=== PATIENT | male | born 2000 | race African-American/Black ===

== ENCOUNTER 2020-05-08 19:25 | Emergency (ER) | payer SELFPAY ==
[2020-05-08] MEDS ORDERED: MAGNES/ALUMIN/SIMET 30ML UCUP ONE (20:17)
--- NOTE | 2020-05-08 20:36 | EDPHYS ---
Physician Documentation [facility] Name: Emerson Pabon Jr Age: 19 yrs Sex: Male : 2000 Arrival Date: 05/08/2020 Time: 19:29 Bed 6 Private MD: ED Physician Eamon Hammer HPI: 05/08 20:40 This 19 yrs old Black Male presents to ER via Ambulatory with complaints of Sore Throat.kb 20:40 The patient presents with sore throat. The patient describes throat pain as constant. kb Onset: The symptoms/episode began/occurred 2 day(s) ago. Severity of symptoms: At their worst the symptoms were moderate, in the emergency department the symptoms are unchanged. Modifying factors: The symptoms are alleviated by nothing, the symptoms are aggravated by swallowing, Patient's oral intake status: good Denies contact with similarly ill indivduals. Associated signs and symptoms: Pertinent positives: Sore throat Pertinent negatives fever, flu-like symptoms. The patient has not experienced similar symptoms in the past. The patient has not recently seen a physician. Historical: - Allergies: 19:39 No Known Allergies; rr5 - Home Meds: 19:39 None [Active]; rr5 - PMHx: 19:39 Asthma; rr5 - PSHx: 19:39 None; rr5 - Immunization history:: Adult Immunizations up to date. - Social history:: Smoking status: unknown Patient uses alcohol, occasionally. street drugs, marijuana. ROS: 20:40 Constitutional: Negative for fever, chills, and weight loss, Cardiovascular: Negative kb for chest pain, palpitations, and edema, Respiratory: Negative for shortness of breath, cough, wheezing, and pleuritic chest pain, Abdomen/GI: Negative for abdominal pain, nausea, vomiting, diarrhea, and constipation, MS/Extremity: Negative for injury and deformity, Skin: Negative for injury, rash, and discoloration, Neuro: Negative for headache, weakness, numbness, tingling, and seizure. 20:40 ENT: Positive for sore throat. Exam: 20:40 Constitutional: This is a well developed, well nourished patient who is awake, alert, kb and in no acute distress. Head/Face: Normocephalic, atraumatic. Chest/axilla: Normal chest wall appearance and motion. Nontender with no deformity. No lesions are appreciated. Cardiovascular: Regular rate and rhythm with a normal S1 and S2. No gallops, murmurs, or rubs. Normal PMI, no JVD. No pulse deficits. Respiratory: Lungs have equal breath sounds bilaterally, clear to auscultation and percussion. No rales, rhonchi or wheezes noted. No increased work of breathing, no retractions or nasal flaring. Abdomen/GI: Soft, non-tender, with normal bowel sounds. No distension or tympany. No guarding or rebound. No evidence of tenderness throughout. Skin: Warm, dry with normal turgor. Normal color with no rashes, no lesions, and no evidence of cellulitis. MS/ Extremity: Pulses equal, no cyanosis. Neurovascular intact. Full, normal range of motion. Neuro: Awake and alert, GCS 15, oriented to person, place, time, and situation. Cranial nerves II-XII grossly intact. Motor strength 5/5 in all extremities. Sensory grossly intact. Cerebellar exam normal. Normal gait. 20:40 ENT: Posterior pharynx: Airway: normal, no evidence of obstruction, Tonsils: bilaterally enlarged, with erythema, Uvula: normal, midline, swelling, that is mild, erythema, that is moderate, exudate, is not appreciated. Vital Signs: 19:37 BP 140 / 86; Pulse 85; Resp 16; Temp 99.1; Pulse Ox 99% ; Weight 111.13 kg; Height 5 rr5 ft. 8 in. (172.72 cm); Pain 10/10; 20:20 BP 133 / 70; Pulse 80; Resp 17; Pulse Ox 99% ; rr5 19:37 Body Mass Index 37.25 (111.13 kg, 172.72 cm) rr5 MDM: 19:31 Patient medically screened. kb 20:35 Data reviewed: vital signs, nurses notes. Data interpreted: Pulse oximetry: on room air kb is 99 %. Interpretation: normal. Counseling: I had a detailed discussion with the patient and/or guardian regarding: the historical points, exam findings, and any diagnostic results supporting the discharge/admit diagnosis, lab results, the need for outpatient follow up, a family practitioner, to return to the emergency department if symptoms worsen or persist or if there are any questions or concerns that arise at home. 20:41 ED course: Pt requested antibiotic to make pain in throat go away. Educated on negative kb strep test and that he will be called if the throat culture returns with a bacteria that needs antibiotics. Educated to treat as a viral pharyngitis at this time with OTC medications and warm, salt water gargles.. 05/08 19:36 Order name: Strep; Complete Time: 20:35 kb 05/08 20:30 Order name: Throat Culture EDMS Administered Medications: 20:05 Drug: GI Cocktail without - (Maalox Suspension 30 ml, Lidocaine Liquid 2 % 15 rr5 ml) Route: PO; 20:39 Follow up: Response: No adverse reaction rr5 Disposition: 05/08/20 20:35 Discharged to Home. Impression: Acute pharyngitis. - Condition is Stable. - Discharge Instructions: Pharyngitis, [id number], Sore Throat, [id number]. - Medication Reconciliation Form, Thank You Letter, Antibiotic Education, Prescription Opioid Use form. - Follow up: Emergency Department; When: As needed; Reason: Worsening of condition. Follow up: Private Physician; When: 2 - 3 days; Reason: Recheck today's complaints, Continuance of care, Re-evaluation by your physician. Addendum: 05/10/2020 03:35 Co-signature as Attending Physician, Eamon Hammer MD. m a2 Signatures: Dispatcher [employer] EDMS Lise Roberts, EPIC INTERFACE ANALYST-C EPIC INTERFACE ANALYST-CkEamon Molina MD MD ma2 Aime Erickson, RN RN rr5 Corrections: (The following items were deleted from the chart) 05/08 20:42 20:35 05/08/2020 20:35 Discharged to Home. Impression: Acute pharyngitis. Condition is rr5 Stable. Forms are Medication Reconciliation Form, Thank You Letter, Antibiotic Education, Prescription Opioid Use. Follow up: Emergency Department; When: As needed; Reason: Worsening of condition. Follow up: Private Physician; When: 2 - 3 days; Reason: Recheck today's complaints, Continuance of care, Re-evaluation by your physician. kb
--- NOTE | 2020-05-08 20:36 | ER ---
Nurse's Notes [facility] Name: Emerson Pabon Jr Age: 19 yrs Sex: Male : 2000 Arrival Date: 05/08/2020 Time: 19: Bed 6 Private MD: Diagnosis: Acute pharyngitis Presentation: 05/08 19:37 Chief complaint: Patient states: I have sore throat started 2 days ago. denies fever or rr5 cough. Coronavirus screen: Client denies travel out of the [place] in the last 14 days. sore throat, Client presents with at least one sign or symptom that may indicate coronavirus-19. Standard/surgical mask placed on the client. Provider contacted for isolation considerations. Ebola Screen: Patient negative for fever greater than or equal to 101.5 degrees Fahrenheit, and additional compatible Ebola Virus Disease symptoms Patient denies exposure to infectious person. Patient denies travel to an Ebola-affected area in the 21 days before illness onset. Initial Sepsis Screen: Does the patient meet any 2 criteria? No. Patient's initial sepsis screen is negative. Does the patient have a suspected source of infection? No. Patient's initial sepsis screen is negative. Risk Assessment: Do you want to hurt yourself or someone else? Patient reports no desire to harm self or others. Onset of symptoms was May 06, 2020. 19:37 Method Of Arrival: Ambulatory rr5 19:37 Acuity: CRISTINO 4 rr5 Historical: - Allergies: 19:39 No Known Allergies; rr5 - Home Meds: 19:39 None [Active]; rr5 - PMHx: 19:39 Asthma; rr5 - PSHx: 19:39 None; rr5 - Immunization history:: Adult Immunizations up to date. - Social history:: Smoking status: unknown Patient uses alcohol, occasionally. street drugs, marijuana. Screenin:40 Abuse screen: Denies threats or abuse. Denies injuries from another. Nutritional rr5 screening: No deficits noted. Tuberculosis screening: No symptoms or risk factors identified. Fall Risk None identified. Total Francois Fall Scale indicates No Risk (0-24 pts). Assessment: 19:40 General: Appears in no apparent distress. uncomfortable, Behavior is calm, cooperative, rr5 appropriate for age. Pain: Complains of pain in throat Pain currently is 10 out of 10 on a pain scale. Quality of pain is described as aching, Pain began gradually, 2-3 days ago. Is intermittent. Neuro: Level of Consciousness is awake, alert, obeys commands, Oriented to person, place, time. Cardiovascular: Capillary refill < 3 seconds Patient's skin is warm and dry. Respiratory: Airway is patent Respiratory effort is even, unlabored, Respiratory pattern is regular, symmetrical, GI: No signs and/or symptoms were reported involving the gastrointestinal system. : No signs and/or symptoms were reported regarding the genitourinary system. EENT: Throat is reddened has enlarged tonsils bilaterally with gag reflex present. Derm: Skin is intact, is healthy with good turgor, Skin temperature is warm. Musculoskeletal: Circulation, motion, and sensation intact. Capillary refill < 3 seconds. 20:41 Reassessment: Patient appears in no apparent distress at this time. Patient is alert, rr5 oriented x 3, equal unlabored respirations, skin warm/dry/pink. discharge instruction given and explained without complaints made. Vital Signs: 19:37 BP 140 / 86; Pulse 85; Resp 16; Temp 99.1; Pulse Ox 99% ; Weight 111.13 kg; Height 5 rr5 ft. 8 in. (172.72 cm); Pain 10/10; 20:20 BP 133 / 70; Pulse 80; Resp 17; Pulse Ox 99% ; rr5 19:37 Body Mass Index 37.25 (111.13 kg, 172.72 cm) rr5 ED Course: 19:29 Patient arrived in ED. bp1 19:30 Lise Roberts FNP-C is [facility]. kb 19:30 Eamon Hammer MD is Attending Physician. kb 19:32 Aime Erickson RN is Primary Nurse. rr5 19:39 Triage completed. rr5 19:39 Arm band placed on right wrist. rr5 19:40 Patient has correct armband on for positive identification. Bed in low position. Call rr5 light in reach. 19:40 No provider procedures requiring assistance completed. Strep swab sent to lab. rr5 20:42 Patient did not have IV access during this emergency room visit. rr5 Administered Medications: 20:05 Drug: GI Cocktail without - (Maalox Suspension 30 ml, Lidocaine Liquid 2 % 15 rr5 ml) Route: PO; 20:39 Follow up: Response: No adverse reaction rr5 Outcome: 20:35 Discharge ordered by MD. johansen 20:42 Discharged to home ambulatory. rr5 20:42 Condition: stable 20:42 Discharge instructions given to patient, Instructed on discharge instructions, follow up and referral plans. Demonstrated understanding of instructions, follow-up care. 20:42 Patient left the ED. rr5 Signatures: Lise Roberts FNP-C FNP-Ckb Roque, Raymond RN RN rr5 [facility]
[2020-05-09 02:12] VITALS: TEMP 99.1; O2SAT 99
[2020-05-09 02:13] VITALS: BP 133/70
== END 2020-05-08 20:42 | disposition home or self-care (01) ==
LOC: ER 19:25
DX: J02.9 Acute pharyngitis, unspecified (principal); J45.909 Unspecified asthma, uncomplicated
CPT/HCPCS: 87070; 87081; 99283

== ENCOUNTER 2020-05-10 14:24 | Emergency (ER) | payer SELFPAY ==
--- NOTE | 2020-05-10 14:46 | EDPHYS ---
Physician Documentation [facility] Name: Emerson Pabon Jr Age: 19 yrs Sex: Male : 2000 Arrival Date: 05/10/2020 Time: 14:27 Bed 20 Private MD: ED Physician Maico Wilkerson HPI: 05/10 14:43 This 19 yrs old Black Male presents to ER via Ambulatory with complaints of Sore Throat.kb 14:43 The patient presents with sore throat. The patient describes throat pain as constant. kb Onset: The symptoms/episode began/occurred 3 day(s) ago. Severity of symptoms: At their worst the symptoms were moderate, in the emergency department the symptoms are unchanged. Modifying factors: The symptoms are alleviated by nothing, the symptoms are aggravated by swallowing, Patient's oral intake status: limited fluid intake, limited food intake, Denies contact with similarly ill indivduals. Associated signs and symptoms: Pertinent positives: Sore throat. The patient has not experienced similar symptoms in the past. The patient has not recently seen a physician. Pt was seen here 2 days ago and had negative strep test. States pain and swelling have been getting progressively worse since then.. Historical: - Allergies: 14:32 No Known Allergies; vg1 - Home Meds: 14:32 None [Active]; vg1 - PMHx: 14:32 Asthma; vg1 - PSHx: 14:32 None; vg1 - Immunization history:: Adult Immunizations up to date, Flu vaccine is up to date. - Social history:: Smoking status: Patient denies any tobacco usage or history of. ROS: 14:41 Constitutional: Negative for fever, chills, and weight loss, Cardiovascular: Negative kb for chest pain, palpitations, and edema, Respiratory: Negative for shortness of breath, cough, wheezing, and pleuritic chest pain, Abdomen/GI: Negative for abdominal pain, nausea, vomiting, diarrhea, and constipation, MS/Extremity: Negative for injury and deformity, Skin: Negative for injury, rash, and discoloration, Neuro: Negative for headache, weakness, numbness, tingling, and seizure. 14:41 ENT: Positive for sore throat. Exam: 14:41 Constitutional: This is a well developed, well nourished patient who is awake, alert, kb and in no acute distress. Head/Face: Normocephalic, atraumatic. Chest/axilla: Normal chest wall appearance and motion. Nontender with no deformity. No lesions are appreciated. Cardiovascular: Regular rate and rhythm with a normal S1 and S2. No gallops, murmurs, or rubs. Normal PMI, no JVD. No pulse deficits. Respiratory: Lungs have equal breath sounds bilaterally, clear to auscultation and percussion. No rales, rhonchi or wheezes noted. No increased work of breathing, no retractions or nasal flaring. Abdomen/GI: Soft, non-tender, with normal bowel sounds. No distension or tympany. No guarding or rebound. No evidence of tenderness throughout. Skin: Warm, dry with normal turgor. Normal color with no rashes, no lesions, and no evidence of cellulitis. MS/ Extremity: Pulses equal, no cyanosis. Neurovascular intact. Full, normal range of motion. Neuro: Awake and alert, GCS 15, oriented to person, place, time, and situation. Cranial nerves II-XII grossly intact. Motor strength 5/5 in all extremities. Sensory grossly intact. Cerebellar exam normal. Normal gait. 14:41 ENT: Posterior pharynx: Airway: normal, no evidence of obstruction, Tonsils: bilaterally enlarged, with erythema, with exudate, Uvula: normal, midline, swelling, that is moderate, erythema, that is marked, exudate, that is mild. Vital Signs: 14:28 BP 155 / 82; Pulse 100; Resp 16; Temp 97.4; Pulse Ox 99% on R/A; Weight 111.13 kg; vg1 Height 5 ft. 8 in. (172.72 cm); Pain 10/10; 15:03 BP 136 / 94; Pulse 66; Resp 17; Pulse Ox 100% ; ll1 14:28 Body Mass Index 37.25 (111.13 kg, 172.72 cm) vg1 MDM: 14:33 Patient medically screened. kb 14:42 Data reviewed: vital signs, nurses notes. Data interpreted: Pulse oximetry: on room air kb is 99 %. Interpretation: normal. Counseling: I had a detailed discussion with the patient and/or guardian regarding: the historical points, exam findings, and any diagnostic results supporting the discharge/admit diagnosis, the need for outpatient follow up, a family practitioner, to return to the emergency department if symptoms worsen or persist or if there are any questions or concerns that arise at home. Administered Medications: 14:58 Drug: Decadron 10 mg Route: PO; ll1 15:05 Follow up: Response: No adverse reaction; RASS: Alert and Calm (0) ll1 14:59 Drug: GI Cocktail without - (Maalox Suspension 30 ml, Lidocaine Liquid 2 % 15 ll1 ml) Route: PO; 15:06 Follow up: Response: No adverse reaction; RASS: Alert and Calm (0) ll1 Disposition: 15:45 Co-signature as Attending Physician, Maico Wilkerson MD I agree with the assessment and isael plan of care. Disposition: 05/10/20 14:45 Discharged to Home. Impression: Acute tonsillitis. - Condition is Stable. - Discharge Instructions: Tonsillitis, [id number]. - Prescriptions for Augmentin 875- 125 mg Oral Tablet - take 1 tablet by ORAL route every 12 hours for 10 days; 20 tablet. - Medication Reconciliation Form, Thank You Letter, Antibiotic Education, Prescription Opioid Use form. - Follow up: Emergency Department; When: As needed; Reason: Worsening of condition. Follow up: Private Physician; When: 2 - 3 days; Reason: Recheck today's complaints, Continuance of care, Re-evaluation by your physician. Signatures: Lise Roberts, CARRIER OPERATOR-C CARRIER OPERATOR-Maico Bob MD MD cha Garcia, Victoria, RN RN vg1 Beth Benedict RN RN ll1 Corrections: (The following items were deleted from the chart) 15:06 14:45 05/10/2020 14:45 Discharged to Home. Impression: Acute tonsillitis. Condition is ll1 Stable. Forms are Medication Reconciliation Form, Thank You Letter, Antibiotic Education, Prescription Opioid Use. Follow up: Emergency Department; When: As needed; Reason: Worsening of condition. Follow up: Private Physician; When: 2 - 3 days; Reason: Recheck today's complaints, Continuance of care, Re-evaluation by your physician. kb
--- NOTE | 2020-05-10 14:46 | ER ---
Nurse's Notes [facility] Name: Emerson Pabon Jr Age: 19 yrs Sex: Male : 2000 Arrival Date: 05/10/2020 Time: 14:27 Bed 20 Private MD: Diagnosis: Acute tonsillitis Presentation: 05/10 14:28 Chief complaint: Patient states: Sore throat. Symptoms began May 05, 2020. Denies vg1 fever. States unable to talk much due to pain. Coronavirus screen: Client denies travel out of the [place] in the last 14 days. At this time, the client does not indicate any symptoms associated with coronavirus-19. Ebola Screen: Patient negative for fever greater than or equal to 101.5 degrees Fahrenheit, and additional compatible Ebola Virus Disease symptoms. Initial Sepsis Screen: Does the patient meet any 2 criteria? No. Patient's initial sepsis screen is negative. Does the patient have a suspected source of infection? No. Patient's initial sepsis screen is negative. Risk Assessment: Do you want to hurt yourself or someone else? Patient reports no desire to harm self or others. Onset of symptoms was May 05, 2020. 14:28 Method Of Arrival: Ambulatory vg1 14:28 Acuity: CRISTINO 4 vg1 Triage Assessment: 14:36 General: Appears in no apparent distress. Behavior is calm, cooperative. Pain: vg1 Complains of pain in throat Pain currently is 10 out of 10 on a pain scale. EENT: Throat is reddened and exudate noticed.. Neuro: Level of Consciousness is awake, alert, obeys commands, Oriented to person, place, time, situation. Respiratory: Airway is patent Respiratory effort is even, unlabored. Historical: - Allergies: 14:32 No Known Allergies; vg1 - Home Meds: 14:32 None [Active]; vg1 - PMHx: 14:32 Asthma; vg1 - PSHx: 14:32 None; vg1 - Immunization history:: Adult Immunizations up to date, Flu vaccine is up to date. - Social history:: Smoking status: Patient denies any tobacco usage or history of. Screenin:06 Abuse screen: Denies threats or abuse. Nutritional screening: No deficits noted. ll1 Tuberculosis screening: No symptoms or risk factors identified. Fall Risk None identified. Total Francois Fall Scale indicates No Risk (0-24 pts). Assessment: 15:04 General: Appears uncomfortable, Behavior is calm, cooperative, appropriate for age. ll1 Pain: Complains of pain in throat Pain currently is 5 out of 10 on a pain scale. Quality of pain is described as aching, Pain began . Neuro: No deficits noted. Cardiovascular: No deficits noted. Respiratory: No deficits noted. Airway is patent Trachea midline Respiratory effort is even, unlabored, Respiratory pattern is regular, symmetrical, Breath sounds are clear bilaterally. EENT: Throat is reddened has enlarged tonsils Reports pain when swallowing. Vital Signs: 14:28 BP 155 / 82; Pulse 100; Resp 16; Temp 97.4; Pulse Ox 99% on R/A; Weight 111.13 kg; vg1 Height 5 ft. 8 in. (172.72 cm); Pain 10/10; 15:03 BP 136 / 94; Pulse 66; Resp 17; Pulse Ox 100% ; ll1 14:28 Body Mass Index 37.25 (111.13 kg, 172.72 cm) vg1 ED Course: 14:27 Patient arrived in ED. as 14:31 Triage completed. vg1 14:32 Arm band placed on. vg1 14:33 Lise Roberts [facility]-C [facility]. kb 14:33 Maico Wilkerson MD is Attending Physician. kb 14:35 Beth Benedict, EDGAR is Primary Nurse. ll1 15:06 Patient has correct armband on for positive identification. Bed in low position. Call ll1 light in reach. Side rails up X 1. Pulse ox on. NIBP on. 15:06 No provider procedures requiring assistance completed. Patient did not have IV access ll1 during this emergency room visit. Administered Medications: 14:58 Drug: Decadron 10 mg Route: PO; ll1 15:05 Follow up: Response: No adverse reaction; RASS: Alert and Calm (0) ll1 14:59 Drug: GI Cocktail without - (Maalox Suspension 30 ml, Lidocaine Liquid 2 % 15 ll1 ml) Route: PO; 15:06 Follow up: Response: No adverse reaction; RASS: Alert and Calm (0) ll1 Outcome: 14:45 Discharge ordered by . kb 15:06 Discharged to home ambulatory. ll1 15:06 Condition: stable 15:06 Discharge instructions given to patient, Instructed on discharge instructions, follow up and referral plans. medication usage, Demonstrated understanding of instructions, follow-up care, medications, Prescriptions given X 1. 15:06 Patient left the ED. ll1 Signatures: Lise Roberts, CREAM SEPARATOR OPERATOR-C CREAM SEPARATOR OPERATOR-Ariadna Becerril Victoria, RN RN vg1 Beth Benedict RN RN ll1 Corrections: (The following items were deleted from the chart) 14:36 14:28 Chief complaint: Patient states: Symptoms began May 05, 2020. Denies fever. vg1 vg1 14:42 14:28 Acuity: CRISTINO 3 vg1 vg1
[2020-05-10] MEDS ORDERED: MAGNES/ALUMIN/SIMET 30ML UCUP ONE (15:07)
[2020-05-10] MEDS ORDERED: dexAMETHasone 4 MG TAB ONE (15:07)
[2020-05-10] MEDS ORDERED: LIDOCAINE VISCOUS 2% SOLN 15 ML UDC ONE (15:07)
== END 2020-05-10 15:06 | disposition home or self-care (01) ==
LOC: ER 14:24
DX: J03.90 Acute tonsillitis, unspecified (principal)
CPT/HCPCS: 99283; J8540